=== PATIENT | female | born 1995 ===

== ENCOUNTER 2017-12-07 12:44 | Outpatient (CLI) | payer OTHER | END 2017-12-07 23:21 | disposition home or self-care (01) | LOC: OBS/DEL 12:44 | DX: O13.3 Gestational [pregnancy-induced] hypertension without significant proteinuria, third trimester (principal); O47.1 False labor at or after 37 completed weeks of gestation; Z34.03 Encounter for supervision of normal first pregnancy, third trimester ==

== ENCOUNTER 2017-12-12 15:22 | Inpatient (IN) | payer OTHER ==
[~2017-12-12] VITALS: Ht 167.6 cm; Wt 220.0 kg
[2017-12-13] MEDS ORDERED: PRENATAL TABLE1 EAC1 PO (09:15)
== END 2017-12-15 17:29 | DRG 775 ==
LOC: LDR 15:22 → OB/GYN 12-13 19:45
PROC: 4A1HXCZ Monitoring of Products of Conception, Cardiac Rate, External Approach (ICD-10-PCS; 2017-12-12)
PROC: 0KQM0ZZ Repair Perineum Muscle, Open Approach (ICD-10-PCS; principal; 2017-12-13)
PROC: 10E0XZZ Delivery of Products of Conception, External Approach (ICD-10-PCS; 2017-12-13)
DX: O70.1 Second degree perineal laceration during delivery (principal); O13.3 Gestational [pregnancy-induced] hypertension without significant proteinuria, third trimester; Z37.0 Single live birth; Z3A.38 38 weeks gestation of pregnancy